=== PATIENT | female | born 1990 | race Caucasian/White ===

== ENCOUNTER 2018-02-15 18:41 | Emergency (ER) | payer OTHER ==
[~2018-02-15] VITALS: Ht 154.9 cm; Wt 47.6 kg
[2018-02-15] MEDS ORDERED: SODIUM CHLORIDE 0.9% 1,000 ML IV ONE (19:00)
[2018-02-15] MEDS ORDERED: TETANUS IMMUNE GLOBULIN 250 UNIT/ML SYRG IM ONE (19:00)
[2018-02-15] MEDS ORDERED: MORPHINE SULFATE 4 MG/ML SYR/VIAL IV ONE ×2 (19:00→21:45)
[2018-02-15] MEDS ORDERED: cefTRIAXone 1GM/10ml IVPUSH 10 ML IV ONE (19:00)
[2018-02-15] MEDS ORDERED: ONDANSETRON HCL 4 MG/2 ML VIAL IV ONE ×2 (19:00→21:45)
[2018-02-15] MEDS ORDERED: LIDOCAINE 1% HCL (LOCAL ANESTH.) INJ 20ML MDV ONE (19:03)
[2018-02-15] MEDS ORDERED: TETANUS-DIPTH-ACEL PERTUSSIS 0.5ML SYRG IM ONE (19:30)
[2018-02-15] MEDS ORDERED: MORPHINE SULFATE 4 MG/ML SYR/VIAL ONE (21:34)
[2018-02-15] MEDS ORDERED: ONDANSETRON HCL 4 MG/2 ML VIAL ONE (21:35)
[2018-02-15] MEDS ORDERED: LIDOCAINE 1% HCL (LOCAL ANESTH.) INJ 20ML MDV IJ ONE (22:00)
[2018-02-15] MEDS ORDERED: LORazepam 2MG/ML-1ML VIAL ONE (22:26)
[2018-02-15] MEDS ORDERED: LORazepam 2MG/ML-1ML VIAL IV ONE (22:45)
[2018-02-15 23:13] VITALS: BP 109/71
== END 2018-02-16 00:55 | disposition home or self-care (01) ==
LOC: ER 18:41
DX: S61.411A Laceration without foreign body of right hand, initial encounter (principal); W25.XXXA Contact with sharp glass, initial encounter; Y93.89 Activity, other specified; Y99.8 Other external cause status; Y92.89 Other specified places as the place of occurrence of the external cause
CPT/HCPCS: 12004; 73110; 90471; 90715; 96374; 96375; 96376; 99285; J0696; J2001; J2060; J2270; J2405